=== PATIENT | female | born 2000 | race African-American/Black ===

== ENCOUNTER 2020-04-02 15:01 | Emergency (ER) | payer BC ==
[~2020-04-02] VITALS: Ht 165.1 cm; Wt 63.0 kg
[2020-04-02 16:20] VITALS: BP 105/70
== END 2020-04-02 17:07 | disposition home or self-care (01) ==
LOC: ER 15:01
DX: B34.9 Viral infection, unspecified (principal); Z91.048 Other nonmedicinal substance allergy status
CPT/HCPCS: 87635; 99283; C9803